=== PATIENT | female | born 1960 | race Two or more races ===

== ENCOUNTER → 2023-04-04 | Outpatient (CLI) | payer OTHER | END | disposition home or self-care (01) | LOC: NUCLEAR 07:00 | PROVIDERS: ATTEND Allergy & Immunology | DX: I20.9 Angina pectoris, unspecified (principal); I11.9 Hypertensive heart disease without heart failure; E11.8 Type 2 diabetes mellitus with unspecified complications; E78.49 Other hyperlipidemia ==